=== PATIENT | female | born 1995 | race Hispanic/Latino ===

== ENCOUNTER 2025-10-16 16:00 | Emergency (ER) | payer BC, MEDICAID ==
[~2025-10-16] VITALS: Ht 160 cm; Wt 93.4 kg
[2025-10-16 16:05] VITALS: TEMP 97.7
[2025-10-16 16:28] LABS: APPEARANCE,URINE CLOUDY (CLEAR); GLUCOSE, URINE (UA) NEGATIVE (NEGATIVE); LEUKOCYTE ESTERASE ,URINE 25 Leu/uL (NEGATIVE); NITRATE,URINE NEGATIVE (NEGATIVE); OCCULT BLOOD,URINE LARGE (NEGATIVE)
[2025-10-16] MEDS: 0.9%NACL 1000ML 1,000 ML IV STA (16:28)
[2025-10-16] MEDS: FAMOTIDINE 20MG VIAL IV ONE (16:28)
[2025-10-16 16:29] LABS: ADD UA MICROSCOPIC YES
[2025-10-16 16:31] LABS: SQUAMOUS EPITHELIAL CELL,UR RARE /HPF (0-2)
[2025-10-16 16:39] LABS: IMMATURE GRANULOCYTE ABSOLUTE 0.02 K/uL (0-1); NUCLEATED RED BLOOD CELLS 0.0 % (0.0-0.19); PLATELET COUNT (AUTO) 316 K/uL (130-400); RED BLOOD CELL COUNT(AUTO) 3.89 MIL/uL (4.00-5.50); RED CELL DISTRIBUTION WIDTH 14.8 % (11.0-15.5); WHITE BLOOD COUNT (AUTO) 7.6 K/uL (4.8-10.8)
[2025-10-16 16:50] LABS: CREATININE 0.6 mg/dL (0.5-1.0); GLOMERULAR FILTR. RATE CALC 125.0 mL/min (>90); GLUCOSE,RANDOM 103.0 mg/dL (70-105); SODIUM SERUM 137.0 mmol/L (136-145); UREA NITROGEN, BLOOD 11.0 mg/dL (7-18)
[2025-10-16 17:00] LABS: ASPARTATE AMINOTRANSFERASE 19.0 U/L (10-37); HCG,QUANTITATIVE 59.0 mIU/mL (0-5); TOTAL PROTEIN, SERUM 7.6 g/dL (6.0-8.3)
[2025-10-16 17:15] VITALS: BP 122/70; PULSE 74; RESP 16; O2SAT 100
[2025-10-16] MEDS ORDERED: ONDA-243 PO (17:33)
--- NOTE | 2025-10-16 17:33 | ERN ---
ED Note History of Present Illness Stated Complaint: ABD PAIN Chief Complaint: Abdominal Pain Time Seen by MD: 16:05 Time Seen by Midlevel: 16:08 Dictation: 49-year-old female coming in with complaints of epigastric pain onset couple hours ago. Patient states this morning she had greasy breakfast including some [place]. States recent seven months ago. Denies having any fever, nausea, vomiting or diarrhea. Allergies: Coded Allergies: No Known Drug Allergies (Unverified Allergy, Unknown, 10/16/25) Past Medical History Past Medical History: No Pertinent History Surgical History: LMP: Aug 29, 2025 : 2 Para: 2 Aborts: 0 Review of System Dictation Constitutional: Negative for fever,chills, and weight loss Eyes: Negative for injury, pain,redness, and discharge ENT: Negative for injury,pain or swelling Cardiovascular: Negative for chest pain, palpitations, and edema Respiratory: Negative for shortness of breath, cough, and wheezing, Abdomen/GI: Epigastric pain Back: Negative for injury and pain : Negative for injury, bleeding and discharge MS/Extremity: Negative for injury and deformity Skin: Negative for rash, and discoloration Neuro: Negative for headache, weakness, numbness, tingling, and seizure Psych: Negative for suicide ideation, homicidal ideation, and hallucinations Review of Systems: was completed Initial Vital Sign VS Vital Signs Date Time Temp Pulse Resp B/P (MAP) Pulse Ox O2 Delivery O2 Flow Rate FiO2 10/16/25 16:05 97.7 78 18 143/90 99 Room Air 0 10/16/25 16:23 21 Physical Exam Dictation General: awake, alert, NAD Head/Face: Normocephalic, atraumatic Eyes: PERRL, EOMI, vision at baseline ENT: oral cavity clear, TMs clear, no signs of infection Neck: Trachea midline, supple, no nuchal rigidity Cardiovascular: RRR, normal S1/S2, No MRGs, no JVD Respiratory: CTAB, no respiratory distress, No rales or wheezes Abdomen: Soft, non-tender, non-distended, normal bowel sounds, no guarding or rebound. Skin: Warm, dry, normal turgor, no rash MS/Extremity: Pulses equal, no cyanosis, neurovascular intact, FROM Neuro: COAx4, GCS 15, strength 5/5, CN 2-12 intact, normal cerebellar exam, normal gait, Psych: Normal behavior, mood, and affect normal Results (Laboratory/Radiology) Laboratory/Radiology Laboratory Tests Test 10/16/25 16:20 10/16/25 16:32 Urine Color LIGHT-YELLOW (YELLOW) Urine Appearance CLOUDY (CLEAR) H Urine pH 6.5 (5.0-8.0) Urine Specific [place] 1.019 (1.001-1.031) Urine Protein NEGATIVE mg/dL (NEGATIVE) Urine Glucose (UA) NEGATIVE mg/dL (NEGATIVE) Urine Ketones NEGATIVE mg/dL (NEGATIVE) Urine Occult Blood LARGE (NEGATIVE) H Urine Nitrate NEGATIVE (NEGATIVE) Urine Bilirubin NEGATIVE mg/dL (NEGATIVE) Urine Urobilinogen 0.2 mg/dL (0.2-1.0) Urine Leukocyte Esterase 25 [place]/uL (NEGATIVE) H Urine RBC 51-100 /HPF (0-1) H Urine WBC 6-10 /HPF (0-1) H Urine Squamous Epithelial Cells RARE /HPF (0-2) Urine Bacteria RARE /HPF (None Seen) White Blood Count 7.6 K/uL (4.8-10.8) Red Blood Count 3.89 MIL/uL (4.00-5.50) L Hemoglobin 10.9 g/dL (12.0-16.0) L Hematocrit 34.2 % (36-48) L Mean Corpuscular Volume 87.9 fL (79-99) Mean Corpuscular Hemoglobin 28.0 pg (27.0-33.0) Mean Corpuscular Hemoglobin Concent 31.9 g/dL (32.0-36.0) L Red Cell Distribution Width 14.8 % (11.0-15.5) Platelet Count 316 K/uL (130-400) Mean Platelet Volume 9.1 fL (7.5-10.5) Immature Granulocyte % (Auto) 0.3 % (0-1) Neutrophils (%) (Auto) 62.8 % (40.0-77.0) Lymphocytes (%) (Auto) 28.6 % (21.0-51.0) Monocytes (%) (Auto) 6.7 % (3.0-13.0) Eosinophils (%) (Auto) 1.3 % (0.0-8.0) Basophils (%) (Auto) 0.3 % (0.0-5.0) Neutrophils # (Auto) 4.8 K/uL (1.8-7.7) Lymphocytes # (Auto) 2.2 K/uL (1.0-4.8) Monocytes # (Auto) 0.5 K/uL (0.1-1.0) Eosinophils # (Auto) 0.10 K/uL (0.00-0.70) Basophils # (Auto) 0.02 K/uL (0.00-0.20) Absolute Immature Granulocyte (auto 0.02 K/uL (0-1) Nucleated Red Blood Cells 0.0 % (0.0-0.19) Sodium Level 137 mmol/L (136-145) Potassium Level 3.6 mmol/L (3.5-5.1) Chloride Level 103 mmol/L (101-111) Carbon Dioxide Level 28 mmol/L (21-32) Blood Urea Nitrogen 11 mg/dL (7-18) Creatinine 0.6 mg/dL (0.5-1.0) Glomerular Filtration Rate Calc 125 mL/min (>90) Random Glucose 103 mg/dL (70-105) Total Calcium 8.4 mg/dL (8.5-10.1) L Total Bilirubin 0.3 mg/dL (0.2-1.0) Direct Bilirubin 0.1 mg/dL (0.0-0.3) Aspartate Amino Transf (AST/SGOT) 19 U/L (10-37) Alanine Aminotransferase (ALT/SGPT) 25 U/L (12-78) Alkaline Phosphatase 108 U/L (50-136) Total Protein 7.6 g/dL (6.0-8.3) Albumin 3.7 g/dL (3.5-5.0) Lipase 30 U/L (16-77) Human Chorionic Gonadotropin, Quant 59 mIU/mL (0-5) H Labs Reviewed?: Yes ED Course ED Course Orders Procedure Category Date Status Time Cbc With Differential LAB 10/16/25 Complete 16:14 Basic Metabolic Panel LAB 10/16/25 Complete 16:14 Lipase LAB 10/16/25 Complete 16:14 Hepatic Function Panel LAB 10/16/25 Complete 16:14 Hcg,Quantitative LAB 10/16/25 Complete 16:14 Urinalysis Profile LAB 10/16/25 Complete 16:14 0.9%Nacl 1000ml (Ns PHA 10/16/25 Complete 1000ml) 16:14 Ondansetron 4mg Inj PHA 10/16/25 Complete (Zofran 4mg Inj) 16:30 Famotidine 20mg Vial PHA 10/16/25 Complete (Pepcid 20mg Vial) 16:30 Culture Urine PRAVEEN 10/16/25 In Process 16:50 Current Medications Medications (Trade) Dose Ordered Sig/Luna Route PRN Reason Start Time Stop Time Status Last Admin Dose Admin Famotidine (Pepcid 20mg Vial) 20 mg ONCE ONCE IV 10/16/25 16:30 10/16/25 16:31 DC 10/16/25 16:28 Ondansetron HCl (zoFRAN 4MG INJ) 4 mg ONCE ONCE IVP 10/16/25 16:30 10/16/25 16:31 DC 10/16/25 16:28 Sodium Chloride 1,000 ml @ 1,000 mls/hr Q1H STAT IV 10/16/25 16:14 10/16/25 17:13 DC 10/16/25 16:28 Vital Signs Date Time Temp Pulse Resp B/P (MAP) Pulse Ox O2 Delivery O2 Flow Rate FiO2 10/16/25 17:15 74 16 122/70 100 Room Air* 0 21 10/16/25 16:23 66 16 130/72 100 Room Air* 0 21 10/16/25 16:05 97.7 78 18 143/90 99 Room Air 0 Medical Decision Making MDM MDM: 49-year-old female coming in with complaints of epigastric pain onset couple hours ago. Patient states this morning she had greasy breakfast including some [place]. States recent seven months ago. Denies having any fever, nausea, vomiting or diarrhea.Patient has a leukocytosis, hemoglobin of 10 and hematocrit of 34. She is a shows no electrolyte abnormality. Normal kidney function. No transaminitis. T bili within normal range. HCG is 59 any. UA shows some blood in the urine. When I went to speak to the patient to tell her that her hCG was positive patient states she had already taken a home test and had an appointment with her OBGYN on the 10/21/2025. Patient states she already had vaginal bleeding since Friday. Denies having any lower pelvic pain. Patient will be instructed to follow up with the OBGYN as scheduled. I performed to abdominal physical exam is all negative. No pelvis pain on palpation. Patient is stable to be discharged home to follow up. Educated that her epigastric pain more likely is related to her diet from this morning. Educated on red flag symptoms of when to return back to the emergency room. Patient verbalized understanding, answered all questions. Differential diagnosis: Gastritis, pancreatitis, GERD Rationale: Tests considered and ordered secondary to shared decision making include: Previous outside records reviewed: Old ER visits. Risk of complication and/or morbidity or mortality of patient management: None Medications-Per medication reconciliation Need for hospitalization: Patient does not meet criteria for hospitalization. Need for emergency major/minor surgery: No There are no social concerns with this patient. Prescription drug management Prescriptions will include symptomatic care Patient's prior external medical records from other ER visits were reviewed by me as indicated. Prior testing and results from previous visits were reviewed. Prior tests were taken into account with medical decision making and resource utilization, independent historian/historians were used to obtain complete medical history. I independently interpreted the test that were performed, results were reviewed by me and considered findings on radiology if ordered. Medical management and examination interpretation discussions were had by me with other qualified healthcare professionals as indicated for the patient's care. DX & DISP Disposition: Discharge Departure Impression: Primary Impression: Gastritis Additional Impression: Early stage of Condition: Stable Scripts Ondansetron (Ondansetron Odt) 4 Mg Tab.rapdis 4 MG PO Q6HPRN PRN for nausea for 3 Days, #16 TAB 0 Refills Prov: MARCO A POLLARD CNP 10/16/25 Additional Instructions: Your appointment with the your OBGYN on 10/21. If you develop any severe lower abdominal pain, severe vaginal bleeding, nausea or vomiting please return back to the emergency room. Referrals: MARCIA VILLANUEVA MD (PCP) Time of Disposition: 17:31 I have reviewed the case, and I agree with, Diagnosis and Plan MARCO A POLLARD CNP Oct 16, 2025 17:33
== END 2025-10-16 17:41 | disposition home or self-care (01) ==
LOC: EDH 16:00
DX: O99.611 Diseases of the digestive system complicating pregnancy, first trimester (principal); K29.70 Gastritis, unspecified, without bleeding; Z3A.00 Weeks of gestation of pregnancy not specified
CPT/HCPCS: 99284; 96374; 96361; 96375; 80076; 80048; 84702; 83690; 85025; 87086; 81001; 36415; J1308; J7030; J2405

== ENCOUNTER 2025-10-28 18:37 | Emergency (ER) | payer BC, MEDICAID ==
[~2025-10-28] VITALS: Ht 160 cm; Wt 92.1 kg
[~2025-10-28 18:37] MED LIST: ONDA-243 PO
[2025-10-28 18:38] VITALS: BP 147/80; PULSE 73; RESP 18; TEMP 98.3
[2025-10-28 19:09] LABS: IMMATURE GRANULOCYTE ABSOLUTE 0.14 K/uL (0-1); NUCLEATED RED BLOOD CELLS 0.0 % (0.0-0.19); PLATELET COUNT (AUTO) 432 K/uL (130-400); RED BLOOD CELL COUNT(AUTO) 4.51 MIL/uL (4.00-5.50); RED CELL DISTRIBUTION WIDTH 14.2 % (11.0-15.5); WHITE BLOOD COUNT (AUTO) 11.9 K/uL (4.8-10.8)
[2025-10-28 19:12] LABS: APPEARANCE,URINE CLEAR (CLEAR); GLUCOSE, URINE (UA) NEGATIVE (NEGATIVE); LEUKOCYTE ESTERASE ,URINE NEGATIVE Leu/uL (NEGATIVE); NITRATE,URINE NEGATIVE (NEGATIVE)
[2025-10-28 19:14] LABS: ADD UA MICROSCOPIC NO; OCCULT BLOOD,URINE NEGATIVE (NEGATIVE)
[2025-10-28 19:21] LABS: CREATININE 0.6 mg/dL (0.5-1.0); GLOMERULAR FILTR. RATE CALC 124.0 mL/min (>90); GLUCOSE,RANDOM 92.0 mg/dL (70-105); SODIUM SERUM 138.0 mmol/L (136-145); UREA NITROGEN, BLOOD 10.0 mg/dL (7-18)
[2025-10-28 19:30] LABS: ASPARTATE AMINOTRANSFERASE 44.0 U/L (10-37); HCG,QUANTITATIVE 1.0 mIU/mL (0-5); TOTAL PROTEIN, SERUM 8.2 g/dL (6.0-8.3)
--- NOTE | 2025-10-28 20:35 | NUR ---
CALLED FOR BEDDING, NO ANSWER
--- NOTE | 2025-10-28 20:42 | NUR ---
CALLED NO ANSWER
--- NOTE | 2025-10-28 20:57 | NUR ---
CALLED NO ANSWER
--- NOTE | 2025-10-28 21:02 | NUR ---
JIM COLLINS MADE AWARE
--- NOTE | 2025-10-28 21:02 | NUR ---
CALLED, NO ANSWER. NOT IN LOBBY, RESTROOM OR MAIN ER, DID NOT COMMUNICATE DESIRE TO LEAVE WITH NURSING STAFF.
== END 2025-10-28 21:03 | disposition left against medical advice (07) ==
LOC: EDH 18:37
DX: R10.9 Unspecified abdominal pain (principal); R11.0 Nausea; Z53.21 Procedure and treatment not carried out due to patient leaving prior to being seen by health care provider
CPT/HCPCS: 36415; 80053; 81003; 83690; 83735; 84702; 85025; 99281